=== PATIENT | male | born 2000 | race Caucasian/White ===

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

== ENCOUNTER 2022-09-26 14:19 | Emergency (ER) | payer OTHER ==
[2022-09-26 14:31] VITALS: BP 128/77; PULSE 105; RESP 19; TEMP 97.7; BMI 30.7
[2022-09-26] MEDS ORDERED: DIPHTH,PERTUSS(ACELL),TET 0.5 ML DISP.SYRIN IM ONE ×2 (16:00→16:06)
== END 2022-09-26 16:31 | disposition home or self-care (01) ==
LOC: JERFT 14:19 → JER 14:19 → JERFT 16:31
PROC: 3E0234Z Introduction of Serum, Toxoid and Vaccine into Muscle, Percutaneous Approach (ICD-10-PCS; principal; 2022-09-26)
PROC: 0XQWXZZ Repair Left Little Finger, External Approach (ICD-10-PCS; 2022-09-26)
DX: S61.217A Laceration without foreign body of left little finger without damage to nail, initial encounter (principal); W23.1XXA Caught, crushed, jammed, or pinched between stationary objects, initial encounter; Y93.33 Activity, BASE jumping
CPT/HCPCS: 90715; 99283-25

== ENCOUNTER 2022-10-04 09:00 | Emergency (ER) | payer OTHER ==
[2022-10-04 09:03] VITALS: BP 110/59; PULSE 56; RESP 20; TEMP 97.8; BMI 30.7
== END 2022-10-04 09:39 | disposition home or self-care (01) ==
LOC: JERFT 09:00
DX: Z48.02 Encounter for removal of sutures (principal)
CPT/HCPCS: 99281-25

== ENCOUNTER 2024-01-08 02:47 | Emergency (ER) | payer OTHER ==
[2024-01-08 02:54] VITALS: BP 150/88; TEMP 98.2; BMI 28.3
[2024-01-08] MEDS ORDERED: DEXAMETHASONE SOD PHOSPHATE 10 MG/1 ML VIAL ONE (03:00)
[2024-01-08] MEDS: ALBUTEROL SO4 2.5/IPRATROPIUM 0.5 INH SOL 3 ML VIAL.NEB. NEB SCH ×2 (03:04)
[2024-01-08] MEDS: DEXAMETHASONE SOD PHOSPHATE 10 MG/1 ML VIAL IVPUSH ONE (03:05)
[2024-01-08] MEDS: DEXAMETHASONE SOD PHOSPHATE 10 MG/1 ML VIAL IM ONE (03:05)
[2024-01-08] MEDS ORDERED: ALBUTEROL SO4 2.5/IPRATROPIUM 0.5 INH SOL 3 ML VIAL.NEB. NEB ONE (03:32)
[2024-01-08] MEDS: ALBUTEROL SO4 2.5/IPRATROPIUM 0.5 INH SOL 3 ML VIAL.NEB. NEB ONE (03:39)
[2024-01-08] MEDS ORDERED: MAGNESIUM SULFATE IN WATER 2 GM/50 ML IVPB IVPB ONE (03:57)
[2024-01-08] MEDS: MAGNESIUM SULF 50% (8.12 MEQ/2 ML-1 GM VIAL) IVPB ONE (04:00)
[2024-01-08 06:03] VITALS: PULSE 80; RESP 20
== END 2024-01-08 06:03 | disposition home or self-care (01) ==
LOC: JER 02:47
PROC: 3E033GC Introduction of Other Therapeutic Substance into Peripheral Vein, Percutaneous Approach (ICD-10-PCS; principal; 2024-01-08)
PROC: 3E023GC Introduction of Other Therapeutic Substance into Muscle, Percutaneous Approach (ICD-10-PCS; 2024-01-08)
PROC: 3E0F7GC Introduction of Other Therapeutic Substance into Respiratory Tract, Via Natural or Artificial Opening (ICD-10-PCS; 2024-01-08)
PROC: 3E0F7GC Introduction of Other Therapeutic Substance into Respiratory Tract, Via Natural or Artificial Opening (ICD-10-PCS; 2024-01-08)
DX: R06.02 Shortness of breath (principal); J45.901 Unspecified asthma with (acute) exacerbation
CPT/HCPCS: 71045-TC-FY; 99284-25; J1100

== ENCOUNTER 2024-03-12 13:37 | Emergency (ER) | payer OTHER ==
[2024-03-12 13:47] VITALS: TEMP 98.4; BMI 28.3
[2024-03-12] MEDS ORDERED: DEXAMETHASONE SOD PHOSPHATE 10 MG/1 ML VIAL ONE (14:07)
[2024-03-12] MEDS ORDERED: ALBUTEROL SO4 2.5/IPRATROPIUM 0.5 INH SOL 3 ML VIAL.NEB. NEB ONE ×2 (14:07→15:30)
[2024-03-12] MEDS: DEXAMETHASONE SOD PHOSPHATE 10 MG/1 ML VIAL PO ONE (14:18)
[2024-03-12] MEDS: ALBUTEROL SO4 2.5/IPRATROPIUM 0.5 INH SOL 3 ML VIAL.NEB. NEB ONE ×2 (14:18→15:34)
[2024-03-12 16:15] VITALS: RESP 19
[2024-03-12 16:16] VITALS: BP 110/72; PULSE 89
== END 2024-03-12 16:16 | disposition home or self-care (01) ==
LOC: JER 13:37
PROC: 3E0F7GC Introduction of Other Therapeutic Substance into Respiratory Tract, Via Natural or Artificial Opening (ICD-10-PCS; principal; 2024-03-12)
PROC: 3E0F7GC Introduction of Other Therapeutic Substance into Respiratory Tract, Via Natural or Artificial Opening (ICD-10-PCS; 2024-03-12)
DX: J45.901 Unspecified asthma with (acute) exacerbation (principal); R05.9 Cough, unspecified; R07.89 Other chest pain; Z20.822 Contact with and (suspected) exposure to COVID-19
CPT/HCPCS: 0241U-QW; 71046-TC-FY; 99284-25; J1100